=== PATIENT | male | born 1955 | race American Indian/Alaskan Native ===

== ENCOUNTER 2020-09-23 14:47 | Outpatient (CLI) | payer MEDICAID ==
[~2020-09-23 14:47] MED LIST: CARV-50 PO; DOCU100C40 PO; HYDR-4353 PO; LACTC PO; MULT-1074 PO; PRAV20TA4 PO
== END 2020-09-23 23:59 | disposition home or self-care (01) ==
LOC: RAD 14:47
DX: C09.9 Malignant neoplasm of tonsil, unspecified (principal); R13.12 Dysphagia, oropharyngeal phase; Z85.89 Personal history of malignant neoplasm of other organs and systems
CPT/HCPCS: 74230

== ENCOUNTER 2025-04-02 12:23 | Outpatient (CLI) | payer MEDICARE, MEDICAID ==
[~2025-04-02 12:23] MED LIST changes: +ASPI-1265 PO; +ATOR-429 PO; -CARV-50 PO; +CARV25TA3 PO; +CYAN-34 PO; -DOCU100C40 PO; +EMPA10TA PO; +FERR325T28 PO; -HYDR-4353 PO; -LACTC PO; +LEVO25TA7 PO; -MULT-1074 PO; -PRAV20TA4 PO; +SACU1TAB PO; +SPIR25TA5 PO
--- NOTE | 2025-04-02 13:57 | RADIOLOGY REPORT ---
CT CTA CAROTIDS/VERTEBRALS INDICATION: OCCLUSION AND STENOSIS OF BILATERAL CAROTID ARTERIES TECHNIQUE: Volumetric multi-detector CT images of the head were obtained without administration of IV contrast.. CT angiography along with MIP and MPR images were obtained of the [place] of [place] arteries. CT angiography along with MIP and MPR images were obtained of the cervical carotid and vertebral arteries. All CT scans at this facility use dose modulation, iterative reconstruction, and/or weight based dosing when appropriate to reduce radiation dose to as low as reasonably achievable. 3-D postprocessing was performed on a separate workstation under radiologist supervision. IV CONTRAST: 100 mL of low osmolar intravenous iodinated contrast material was administered. COMPARISON: None FINDINGS: ANTERIOR CIRCULATION: Significant complete occlusion of the left petrous and cavernous segment with complete occlusion of the left common carotid and internal carotid artery cervical system Anterior cerebral arteries including the A1 and A2 segments are patent bilaterally. Anterior communicating artery patent without aneurysm formation. Middle cerebral arteries including the horizontal M1 and sylvian M2 are patent bilaterally however left MCA system predominantly fed through the left posterior communicating artery Posterior communicating arteries are seen bilaterally. POSTERIOR CIRCULATION: Posterior cerebral arteries are patent bilaterally. Left vertebral artery is dominant given long segment complete occlusion of the right vertebral artery from the origin to distal V2 segment. Distal reconstitution. Diminutive right V4 intracranial segment. The intracranial segments of the vertebral arteries are patent bilaterally. The basilar artery is patent without aneurysm formation. The posterior inferior cerebellar arteries are patent bilaterally. 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 Calcified plaque of the left carotid bulb. Mild less than 50 percent calcified plaque of the right carotid bulb. OTHER: Left anterior chest cardiac device. IMPRESSION: 1. 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 2. 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 3. 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 4. Left MCA system predominantly fed through the left posterior communicating artery.
== END 2025-04-02 23:59 | disposition home or self-care (01) ==
LOC: RAD 12:23
PROVIDERS: ATTEND Internal Medicine Interventional Cardiology
DX: I65.23 Occlusion and stenosis of bilateral carotid arteries (principal)
CPT/HCPCS: 70498; Q9967